=== PATIENT | female | born 1955 | race Caucasian/White ===

== ENCOUNTER 2024-02-23 14:02 | Outpatient (CLI) | payer MEDICARE ==
[~2024-02-23] VITALS: Ht 170.2 cm; Wt 89.8 kg
[2024-02-23] MEDS: albuterol 2.5 MG/3 ML nebule NEB ONE (14:43)
[2024-02-23 14:45] VITALS: PULSE 73; RESP 18; O2SAT 97
[2024-02-23 14:56] VITALS: PULSE 72; RESP 16
== END 2024-02-23 23:59 | disposition home or self-care (01) ==
LOC: RT 14:02
PROVIDERS: ATTEND Nurse Practitioner Family
DX: R06.09 Other forms of dyspnea (principal)
CPT/HCPCS: 94060; 94760